=== PATIENT | male | born 1995 | race Caucasian/White ===

== ENCOUNTER 2019-10-27 16:07 | Outpatient (CLI) | payer OTHER, SELFPAY ==
--- NOTE | 2019-10-27 16:14 | XR_ITS ---
WS: [id number] Chest 2 views, 10/27/2019 Clinical Data: REGULATED PROGRAM MONITORING Comparison: PA and lateral chest, 10/21/2018. Findings: No nodules, masses or effusions are seen. The heart is normal. The pulmonary vascularity is not increased. No pneumonia or pneumothorax is seen. XR/XR chest 2V* [id number] Impression: Negative chest.
== END 2019-10-27 16:08 | disposition home or self-care (01) ==
PROVIDERS: Visit Provider Preventive Medicine Occupational Medicine
DX: Z13.6 Encounter for screening for cardiovascular disorders (principal)
CPT/HCPCS: 71046

== ENCOUNTER → 2021-04-23 10:45 | Outpatient (BNVA) | payer OTHER, SELFPAY | PROVIDERS: Visit Provider Nurse Practitioner Family | DX: Z20.822 Contact with and (suspected) exposure to COVID-19 (principal) | CPT/HCPCS: 87635 ==

== ENCOUNTER → 2021-07-04 14:01 | Outpatient (BNVA) | payer BC, SELFPAY | PROVIDERS: Visit Provider Family Medicine | DX: I10 Essential (primary) hypertension (principal); F17.218 Nicotine dependence, cigarettes, with other nicotine-induced disorders; Z76.89 Persons encountering health services in other specified circumstances | CPT/HCPCS: 80053; 85025 ==